=== PATIENT | male | born 1950 | race Caucasian/White ===

== ENCOUNTER 2017-09-08 07:40 | Day surgery (SDC) | payer MEDICARE ==
[~2017-09-08] VITALS: Ht 182.9 cm; Wt 113.4 kg
[~2017-09-08 07:40] MED LIST: ADVIL200 MG PO; GLUCOPHAGE500 MG PO; METOPROLOL SUCC50 MG PO; PAXIL10 MG PO
--- NOTE | 2017-09-08 10:55 | NUR ---
PATIENT BACK IN DAY SURGERY ROOM FROM PACU. DENIES PAIN. DENIES NAUSEA. RIGHT KNEE DRESSING CDI. ICE PACK TO RIGHT KNEE. RIGHT LEG ELEVATED ON PILLOW. CSM TO RIGHT TOES WNL. VS CHECKED. TOLERATING ICE WATER. GIVEN JELLO TO EAT. IV SITE WNL. AT BEDSIDE. CALL LIGHT WITHIN REACH.
[2017-09-08] MEDS ORDERED: ULTRAM50 MG PO (11:06)
--- NOTE | 2017-09-08 11:58 | NUR ---
1140: PATIENT TOLERATED JELLO. DENIES PAIN. VS CHECKED. IV DC'D WNL. TIP INTACT. DRESSING APPLIED. PATIENT ASSISTED OOB AND TO WALK AROUND ROOM. GAIT STEADY. TO ASSIST PATIENT WITH GETTING DRESSED. 1145: DISCHARGE INSTRUCTIONS GIVEN TO PATIENT AND . PATIENT DISCHARGED TO HOME WITH VIA WHEELCHAIR.
--- NOTE | 2017-09-13 07:55 | OR ---
[facility] [address], [place] [address] Signed DATE OF OPERATION: 09/08/2017 SURGEON: Yani Shaffer MD PREOPERATIVE DIAGNOSIS: Medial meniscal tear. POSTOPERATIVE DIAGNOSES: Medial meniscal tear with areas of grade 2 to grade 3 chondral changes over the medial and lateral femoral condyles, the medial tibial plateau, posterior aspect of the patella, and the trochlear groove. PROCEDURE: Knee arthroscopy with partial medial meniscectomy. ANESTHESIA: General. COMPLICATIONS: There were no intraoperative complications. TOURNIQUET TIME: About 20 minutes. WHAT WAS DONE: The patient was taken to the operating room. After anesthesia was induced and airway secured, the patient was positioned, prepped and draped in a routine sterile fashion. The leg was exsanguinated with an Esmarch bandage. Pneumatic tourniquet was inflated to 300 mmHg pressure. A superomedial outflow portal was created and there was the outflow about 10 mL of clear, but relatively viscous synovial fluid. The arthroscope was inserted through the standard anterolateral portal. An anteromedial portal was created using transillumination and localization with a spinal needle. Diagnostic arthroscopy revealed a moderate synovitis in the suprapatellar pouch. The areas of grade 2 and grade 3 chondral oil changer the posterior aspect of the facet as well as over the femoral trochlea. These were minimally debrided with the motorized shaver. The medial recess was unremarkable. The medial compartment again showed areas of grade 2 and grade 3 chondral oil changer the weightbearing portion of medial femoral condyle and the medial tibial plateau. There was a complex tear of the posterior horn of the medial meniscus. We then passed a basket forceps through the anteromedial portal, completed the medial meniscal tear. We then morselized the fragments and suction them out of the Electronically Signed By: YANI SHAFFER MD 09/13/17 0755 PATIENT NAME: GUILHERME ELY OPERATIVE REPORT DATE OF : 52 REPORT #: [id number] PHYSICIAN: YANI SHAFFER MD PCP: LAURA SANCHEZ REPORT IS CONFIDENTIAL AND NOT TO BE RELEASED WITHOUT AUTHORIZATION [facility] [address], [place] [address] Signed knee using the motorized shaver. The intercondylar notch was unremarkable. Lateral compartment again showed some areas of grade 2 to grade 3 chondral change of the lateral femoral condyle, but the lateral meniscus was unremarkable as was the lateral recess. The knee was copiously irrigated and drained. Portals were closed. Sterile dressings applied. The patient was awakened and taken to the recovery room, where he arrived in stable condition. Counts were correct and antibiotic protocols were followed. Yani Shaffer MD WFB/MODL /[id number] Copies: ~ Electronically Signed By: YANI SHAFFER MD 09/13/17 0755 PATIENT NAME: GUILHERME ELY OPERATIVE REPORT DATE OF : 52 REPORT #: [id number] PHYSICIAN: YANI SHAFFER MD PCP: LAURA SANCHEZ REPORT IS CONFIDENTIAL AND NOT TO BE RELEASED WITHOUT AUTHORIZATION
== END 2017-09-08 11:45 | disposition home or self-care (01) ==
LOC: DS 07:40 → OPS 07:40 → DS 09:45 → OPS 11:45
PROVIDERS: Orthopaedic Surgery
PROC: 0SBC4ZZ Excision of Right Knee Joint, Percutaneous Endoscopic Approach (ICD-10-PCS; principal; 2017-09-08 09:45)
DX: S83.231A Complex tear of medial meniscus, current injury, right knee, initial encounter (principal); M65.861 Other synovitis and tenosynovitis, right lower leg; E11.9 Type 2 diabetes mellitus without complications; G89.29 Other chronic pain; M54.9 Dorsalgia, unspecified; M19.90 Unspecified osteoarthritis, unspecified site; I10 Essential (primary) hypertension; Z79.899 Other long term (current) drug therapy; Z87.891 Personal history of nicotine dependence
CPT/HCPCS: J0690; J1100; J2250; J2405; J3010; J3301; J7120

== ENCOUNTER 2020-02-27 08:43 | Emergency (ER) | payer MEDICARE ==
[~2020-02-27] VITALS: Ht 182.9 cm; Wt 113.4 kg
[~2020-02-27 08:43] MED LIST changes: +ULTRAM50 MG PO
[2020-02-27] MEDS ORDERED: EUTHYROX150 MCG PO (09:04)
--- NOTE | 2020-02-27 18:37 | EKG ---
[facility] [place] [facility] [address] [place] [place], [place] [address] Signed Sinus rhythm with marked sinus arrhythmia with 1st degree AV block Otherwise normal ECG When compared with ECG of 06-SEP-2017 09:27, No significant change was found Confirmed by WILLIAM REN MD ([id number]) on 02/27/2020 6:37:44 PM Electronically Signed By: WILLIAM REN MD 02/27/20 1837 PATIENT NAME: GUILHERME ELY VALERIE Electrocardiogram DATE OF : 52 PHYSICIAN: WILLIAM REN MD REPORT #: [id number] REPORT IS CONFIDENTIAL AND NOT TO BE RELEASED WITHOUT AUTHORIZATION
== END 2020-02-27 11:35 | disposition home or self-care (01) ==
LOC: ED 08:43
DX: D64.9 Anemia, unspecified (principal); D72.819 Decreased white blood cell count, unspecified; D69.6 Thrombocytopenia, unspecified; I10 Essential (primary) hypertension; Z85.038 Personal history of other malignant neoplasm of large intestine; Z87.891 Personal history of nicotine dependence; Z79.899 Other long term (current) drug therapy
CPT/HCPCS: 80053; 80500; 82728; 83540; 83615; 84466; 84484; 85025; 85045; 86850; 86900; 86901; 86920; 93005; 93010; 99285-25

== ENCOUNTER 2021-04-19 17:42 | Emergency (ER) | payer MEDICARE ==
[~2021-04-19] VITALS: Ht 182.9 cm; Wt 112.5 kg
[~2021-04-19 17:42] MED LIST changes: +DIPHENOXYLATE-1 EACH PO; +EUTHYROX150 MCG PO; +OMEPRAZOLE20 MG PO; +PERFECT IRON25 MG PO
== END 2021-04-19 21:17 | disposition home or self-care (01) ==
LOC: ED 17:42
DX: U07.1 COVID-19 (principal); B97.4 Respiratory syncytial virus as the cause of diseases classified elsewhere; Z23 Encounter for immunization; I10 Essential (primary) hypertension; Z87.891 Personal history of nicotine dependence; Z79.899 Other long term (current) drug therapy
CPT/HCPCS: 71045; 80053; 81001; 83605; 85025; 99284-25; A9270; C9803; M0247; U0003

== ENCOUNTER 2022-03-10 10:18 | Emergency (ER) | payer MEDICARE ==
[~2022-03-10] VITALS: Ht 182.9 cm; Wt 112.5 kg
== END 2022-03-10 13:32 | disposition home or self-care (01) ==
LOC: ED 10:18
DX: J90 Pleural effusion, not elsewhere classified (principal); R18.8 Other ascites; I10 Essential (primary) hypertension; E03.9 Hypothyroidism, unspecified; E11.65 Type 2 diabetes mellitus with hyperglycemia; C18.9 Malignant neoplasm of colon, unspecified; Z79.899 Other long term (current) drug therapy; Z87.891 Personal history of nicotine dependence
CPT/HCPCS: 99283